=== PATIENT | female | born 1985 | race Caucasian/White ===

== ENCOUNTER 2016-12-01 12:16 | Emergency (ER) | payer OTHER ==
[2016-12-01 13:17] VITALS: BP 108/70
--- NOTE | 2016-12-01 13:38 | UC ---
Complaint Female HPI - HPI Summary HPI Summary: patient has 1 day of dull back ache and now dysuria. hx of kidney stones - History Of Current Complaint Chief Complaint: UCGU Stated Complaint: BACK PAIN Time Seen by Provider: 12/01/16 13:31 Hx Obtained From: Patient Hx Last Menstrual Period: on Depo Provera ?: No Onset/Duration: Sudden Onset, Lasting Hours Timing: Constant Severity Initially: Moderate Severity Currently: Moderate Pain Intensity: 6 Pain Scale Used: 0-10 Numeric Character: Burning Aggravating Factor(s): Urination Associated Signs And Symptoms: Positive: Back Pain - Risk Factors Ovarian Torsion Risk Factor: Negative - Allergies/Home Medications Allergies/Adverse Reactions: Allergies Allergy/AdvReac Type Severity Reaction Status Date / Time Ketorolac Tromethamine Allergy Intermediate overheated Verified 01/13/16 16:46 [From Toradol] Sulfamethoxazole Allergy Intermediate Rash Verified 01/13/16 16:46 w/Trimethoprim [From Bactrim] Clavulanic Acid Allergy Mild Rash Verified 01/13/16 16:46 [From Augmentin] Lacosamide [From Vimpat] AdvReac Hallucinati Verified 07/12/16 13:17 ons PMH/Surg Hx/FS Hx/Imm Hx Previously Healthy: Yes Endocrine History Of: Reports: Thyroid Disease - Hyperparathyroidism Cardiovascular History Of: Denies: Cardiac Disorders Neurological History Of: Reports: Seizures - grand mal, does have occasional seizures - Surgical History Surgical History: Yes Surgery Procedure, Year, and Place: kidney stones. parathyroid/partial. vagus nerve stimulator - Family History Known Family History: Positive: None, Hypertension - Social History Alcohol Use: Rare Substance Use Type: None Smoking Status (MU): Never Smoked Tobacco Review of Systems Constitutional: Negative Skin: Negative Eyes: Negative ENT: Negative Respiratory: Negative Cardiovascular: Negative Gastrointestinal: Negative Genitourinary: Dysuria, Hematuria, Frequency, Urgency Motor: Negative Neurovascular: Negative Musculoskeletal: Myalgia - back pain Neurological: Negative Psychological: Negative All Other Systems Reviewed And Are Negative: Yes Physical Exam Triage Information Reviewed: Yes Appearance: Well-Nourished, Ill-Appearing, Pain Distress Vital Signs: Initial Vital Signs Temp 98.1 F 12/01/16 13:09 Pulse 75 12/01/16 13:09 Resp 14 12/01/16 13:09 BP 108/70 12/01/16 13:09 Pulse Ox 100 12/01/16 13:09 Vital Signs Reviewed: Yes Eye Exam: Normal Eyes: Positive: Conjunctiva Clear ENT Exam: Normal ENT: Positive: Hearing grossly normal, Pharynx normal, TMs normal Dental Exam: Normal Neck exam: Normal Neck: Positive: Supple, Nontender, No Lymphadenopathy Respiratory Exam: Normal Respiratory: Positive: Chest non-tender, Lungs clear, Normal breath sounds Cardiovascular Exam: Normal Cardiovascular: Positive: RRR, No Murmur, Pulses Normal Abdominal Exam: Other - no CVA tenderness, lower abdominal tenderness, Abdomen Description: Positive: No Organomegaly, Soft Bowel Sounds: Positive: Present Musculoskeletal Exam: Normal Musculoskeletal: Positive: Strength Intact, ROM Intact, No Edema Neurological Exam: Normal Neurological: Positive: Alert, Muscle Tone Normal Psychological Exam: Normal Skin Exam: Normal Complaint Female Dx - Course Course Of Treatment: hx obtained, exam performed, medications reviewed, UA positive, culture sent. meds prescribed. - Differential Dx/Diagnosis Differential Diagnosis/HQI/PQRI: Pelvic Inflammatory Disease, Sexually Transmitted Disease, Ureteral Stone, Urinary Tract Infection Provider Diagnoses: UTI. Hematuria Discharge - Discharge Plan Condition: Stable Disposition: HOME Patient Education Materials: Urinary Tract Infection in Women (ED) Additional Instructions: Increase your fluid intake and take the medication as prescribed. follow up with any worsening symptoms.
== END 2016-12-01 13:42 | disposition home or self-care (01) ==
LOC: UCCORT 12:16
DX: N39.0 Urinary tract infection, site not specified (principal); R31.9 Hematuria, unspecified; E21.3 Hyperparathyroidism, unspecified; G40.409 Other generalized epilepsy and epileptic syndromes, not intractable, without status epilepticus; Z88.2 Allergy status to sulfonamides; Z88.1 Allergy status to other antibiotic agents; Z88.5 Allergy status to narcotic agent
CPT/HCPCS: 87086; 99212; G0463

== ENCOUNTER 2016-12-18 13:36 | Emergency (ER) | payer OTHER ==
[2016-12-18 13:51] VITALS: BP 92/69
--- NOTE | 2016-12-18 17:09 | RAD ---
HISTORY: Injury to right ankle, unable to bear weight COMPARISONS: None VIEWS: 3, Frontal, lateral, and oblique views of the right ankle FINDINGS: BONE DENSITY: Normal. BONES: There is a small bone fragment off the distal fibula consistent with an avulsion injury. There is a questionable small bone fragment off the medial malleolus also suggestive of avulsion injury. JOINTS: There is no arthropathy. ALIGNMENT: There is no dislocation. SOFT TISSUES: There is a ventral soft tissue swelling OTHER FINDINGS: None. IMPRESSION: SOFT TISSUE SWELLING WITH SMALL BONE FRAGMENTS OF THE LATERAL AND MEDIAL MALLEOLI SUGGESTIVE OF AVULSION INJURIES
--- NOTE | 2016-12-18 18:19 | UC ---
Lower Extremity/Ankle HPI - HPI Summary HPI Summary: Patient with a history of seizures arrives to with a CC of right ankle pain after experiencing a seizure last evening and injuring the ankle. It is unknown how she injured it. She notes pain over medial and lateral sides of ankle. Denies knee pain or lower extremity pain. She has a history of injuring herself with seizures and is followed carefully by her PCP and neurologist. Denies other injuries. Denies known head injury. - History of Current Complaint Chief Complaint: UCLowerExtremity Stated Complaint: RIGHT ANKLE PAIN Time Seen by Provider: 12/18/16 14:35 Hx Obtained From: Patient Hx Last Menstrual Period: on Depo Provera ?: No Onset/Duration: Sudden Onset Severity Initially: Mild Severity Currently: Mild Pain Intensity: 2 Pain Scale Used: 0-10 Numeric Aggravating Factor(s): Standing, Ambulation Alleviating Factor(s): Rest Able to Bear Weight: Yes - Risk Factors Gout Risk Factors: Negative DVT Risk Factors: Negative Septic Arthritis Risk Factor: Negative - Allergies/Home Medications Allergies/Adverse Reactions: Allergies Allergy/AdvReac Type Severity Reaction Status Date / Time Ketorolac Tromethamine Allergy Intermediate overheated Verified 12/18/16 13:51 [From Toradol] Sulfamethoxazole Allergy Intermediate Rash Verified 12/18/16 13:51 w/Trimethoprim [From Bactrim] Clavulanic Acid Allergy Mild Rash Verified 12/18/16 13:51 [From Augmentin] Lacosamide [From Vimpat] AdvReac Hallucinati Verified 12/18/16 13:51 ons Home Medications: Home Medications Perampanel [Fycompa] 2 mg PO DAILY 12/18/16 [History Confirmed 12/18/16] PMH/Surg Hx/FS Hx/Imm Hx Previously Healthy: Yes Endocrine History Of: Reports: Thyroid Disease - Hyperparathyroidism Cardiovascular History Of: Denies: Cardiac Disorders Neurological History Of: Reports: Seizures - grand mal, does have occasional seizures - Surgical History Surgical History: Yes Surgery Procedure, Year, and Place: kidney stones. parathyroid/partial. vagus nerve stimulator - Family History Known Family History: Positive: None, Hypertension - Social History Occupation: Unemployed Lives: With Family Alcohol Use: Rare Substance Use Type: None Smoking Status (MU): Never Smoked Tobacco Have You Smoked in the Last Year: No Review of Systems Constitutional: Negative Skin: Negative Respiratory: Negative Cardiovascular: Negative Motor: Decreased ROM, Weakness Neurovascular: Negative Musculoskeletal: Decreased ROM, Myalgia Neurological: Negative Psychological: Negative All Other Systems Reviewed And Are Negative: Yes Physical Exam Triage Information Reviewed: Yes Appearance: Well-Appearing, No Pain Distress, Well-Nourished Vital Signs: Initial Vital Signs Temp 98.0 F 12/18/16 13:47 Pulse 99 12/18/16 13:47 Resp 14 12/18/16 13:47 BP 92/69 12/18/16 13:47 Pulse Ox 99 12/18/16 13:47 Eye Exam: Normal Neck exam: Normal Neck: Positive: Supple Respiratory: Positive: Lungs clear, Normal breath sounds Cardiovascular Exam: Normal Bowel Sounds: Positive: Present Musculoskeletal: Positive: Strength Limited @ - plantarflexion and dorsiflexion , ROM Limited @ Neurological Exam: Normal Psychological Exam: Normal Psychological: Positive: Normal Response To Family, Age Appropriate Behavior Skin Exam: Normal Procedures - Splinting Location: right ankle Hand-Made Type: fiberglass Splint: sugar-tong - with a posterior Pre-Proc Neuro Vasc Exam: normal Post-Proc Neuro Vasc Exam: normal Lower Extremity Course/Dx - Course Course Of Treatment: Physical exam performed. No lacerations or head injuries noted. Patient with history of seizures. On medications and followed carefully by neurologist and PCP. Imaging shows lateral and medial malleolar avulsion fracture. D/t patients history of seizures, will place in posterior walking splint to prevent re-injury until follow up with orthopedist. - Differential Dx/Diagnosis Differential Diagnosis/HQI/PQRI: Fracture (Closed), Sprain, Strain Provider Diagnoses: bimalleolar avulsion fracture of right ankle Discharge - Discharge Plan Condition: Stable Disposition: HOME Patient Education Materials: Ankle Fracture (ED) Referrals: Jany Kaba MD [Primary Care Provider] - Yessi Montalvo MD [Medical Doctor] - Additional Instructions: Follow up with orthopedist. Ibuprofen 600mg three times daily with meals as needed for discomfort.
== END 2016-12-18 18:15 | disposition home or self-care (01) ==
LOC: UCCORT 13:36
DX: S82.841A Displaced bimalleolar fracture of right lower leg, initial encounter for closed fracture (principal); X58.XXXA Exposure to other specified factors, initial encounter; Y93.9 Activity, unspecified; Y92.9 Unspecified place or not applicable; G40.909 Epilepsy, unspecified, not intractable, without status epilepticus; Z88.6 Allergy status to analgesic agent; Z88.1 Allergy status to other antibiotic agents; Z88.2 Allergy status to sulfonamides
CPT/HCPCS: 99212; G0463

== ENCOUNTER 2017-01-31 22:59 | Emergency (ER) | payer OTHER ==
[2017-02-01 00:25] LABS: Hematocrit 33 % (35-47); Mean Corpuscular HGB Conc 34 g/dl (31-36); Mean Corpuscular Hemoglobin 30 pg (27-31); Mean Corpuscular Volume 90 fL (80-97); Mean Platelet Volume 8 um3 (7.4-10.4); Red Blood Count 3.64 10^6/ul (4.0-5.4); Red Cell Distribution Width 13 % (10.5-15); White Blood Count 10.1 10^3/ul (3.5-10.8)
[2017-02-01 00:36] LABS: Albumin 3.9 g/dL (3.2-5.2); BUN/Creatinine Ratio 22.9 (8-20); Calcium 10.3 mg/dL (8.6-10.3); EGFR African American 87.8 (>60); EGFR Non-African American 68.2 (>60); Globulin 2.9 g/dL (2-4); Magnesium 2.1 mg/dL (1.9-2.7); Total Bilirubin 0.2 mg/dL (0.2-1.0); Total Protein 6.8 g/dL (6.4-8.9)
--- NOTE | 2017-02-01 01:01 | ED ---
Jaymie Alfonso Salem, scribed for Jonas Yo MD on 01/31/17 at 2358 . Neurological HPI - HPI Summary HPI Summary: Patient is a 32 y/o female who presents to the ED per EMS s/p seizure earlier today. Pt reports she has epilepsy and has been having seizures daily for some time (her last sz before this one was yesterday). Pt reports she was in the hospital yesterday as she twisted her ankle after a sz. She presents today with ecchymosis of the left face after falling during her sz. Pts mother states that pts epilepsy has not been managed well for the last 5-6 years. They report they spoke to Dr. Cartagena (neurologist) today and she changed her medications. - History of Current Complaint Chief Complaint: EDSeizure Stated Complaint: SEIZURE Time Seen by Provider: 01/31/17 23:13 Hx Obtained From: Patient, Family/Brancher - Parents. Hx Last Menstrual Period: on Depo Provera Onset/Duration: Gradual Onset, Started hours ago Onset Severity: Moderate Current Severity: Moderate Seizure Severity: Moderate Pain Intensity: 0 Pain Scale Used: 0-10 Numeric Aggravating: Nothing Alleviating: Nothing Associated Signs and Symptoms: Positive: Negative - Allergy/Home Medications Allergies/Adverse Reactions: Allergies Allergy/AdvReac Type Severity Reaction Status Date / Time Ketorolac Tromethamine Allergy Intermediate overheated Verified 12/18/16 13:51 [From Toradol] Sulfamethoxazole Allergy Intermediate Rash Verified 12/18/16 13:51 w/Trimethoprim [From Bactrim] Clavulanic Acid Allergy Mild Rash Verified 12/18/16 13:51 [From Augmentin] Lacosamide [From Vimpat] AdvReac Hallucinati Verified 12/18/16 13:51 ons PMH/Surg Hx/FS Hx/Imm Hx Endocrine/Hematology History: Reports: Hx Thyroid Disease - Hyperparathyroidism Neurological History: Reports: Hx Seizures - grand mal, does have occasional seizures - Surgical History Surgery Procedure, Year, and Place: kidney stones. parathyroid/partial. vagus nerve stimulator Infectious Disease History: No Infectious Disease History: Denies: Traveled Outside the [place] in Last 30 Days - Family History Known Family History: Positive: Hypertension Negative: Cardiac Disease, Diabetes - Social History Alcohol Use: Rare Hx Substance Use: No Substance Use Type: Reports: None Hx Tobacco Use: No Smoking Status (MU): Never Smoked Tobacco Have You Smoked in the Last Year: No Review of Systems Positive: Other - Ecchymosis of the left face.. Negative: Fever Positive: Other - Twisted ankle. Neurological: Other - Seizure. All Other Systems Reviewed And Are Negative: Yes Physical Exam Triage Information Reviewed: Yes Vital Signs On Initial Exam: Initial Vitals Temp Pulse Resp BP Pulse Ox 98.3 F 87 18 113/71 98 01/31/17 23:08 01/31/17 23:08 01/31/17 23:08 01/31/17 23:08 01/31/17 23:08 Vital Signs Reviewed: Yes Appearance: Positive: Well-Appearing, No Pain Distress Skin: Positive: Warm Eyes: Positive: PINKY ENT: Positive: Hearing grossly normal Neck: Positive: Supple Respiratory/Lung Sounds: Positive: Clear to Auscultation, Breath Sounds Present Cardiovascular: Positive: RRR Abdomen Description: Positive: Nontender, Soft Bowel Sounds: Positive: Present Musculoskeletal: Positive: Strength/ROM Intact Neurological: Positive: Sensory/Motor Intact, Alert, Oriented to Person Place, Time Psychiatric: Positive: Affect/Mood Appropriate - Jackson Coma Scale Coma Scale Total: 15 Diagnostics - Vital Signs Vital Signs Temp Pulse Resp BP Pulse Ox 01/31/17 23:08 98.3 F 87 18 113/71 98 - Laboratory Lab Results: Lab Results 02/01/17 02/01/17 02/01/17 Range/Units 00:05 00:05 00:05 WBC 10.1 (3.5-10.8) 10^3/ul RBC 3.64 L (4.0-5.4) 10^6/ul Hgb 11.0 L (12.0-16.0) g/dl Hct 33 L (35-47) % MCV 90 (80-97) fL MCH 30 (27-31) pg MCHC 34 (31-36) g/dl RDW 13 (10.5-15) % Plt Count 203 (150-450) 10^3/ul MPV 8 (7.4-10.4) um3 Neut % (Auto) 77.5 (38-83) % Lymph % (Auto) 14.1 L (25-47) % [place] % (Auto) 6.1 (1-9) % Eos % (Auto) 1.8 (0-6) % Baso % (Auto) 0.5 (0-2) % Absolute Neuts (auto) 7.9 H (1.5-7.7) 10^3/ul Absolute Lymphs (auto) 1.4 (1.0-4.8) 10^3/ul Absolute Monos (auto) 0.6 (0-0.8) 10^3/ul Absolute Eos (auto) 0.2 (0-0.6) 10^3/ul Absolute Basos (auto) 0 (0-0.2) 10^3/ul Absolute Nucleated RBC 0 10^3/ul Nucleated RBC % 0 INR (Anticoag Therapy) 0.91 (0.89-1.11) Sodium 138 (133-145) mmol/L Potassium Pending Chloride 111 (101-111) mmol/L Carbon Dioxide 20 L (22-32) mmol/L Anion Gap Pending BUN 22 (6-24) mg/dL Creatinine 0.96 H (0.51-0.95) mg/dL Est GFR ( Amer) 87.8 (>60) Est GFR (Non-Af Amer) 68.2 (>60) BUN/Creatinine Ratio 22.9 H (8-20) Glucose 120 H (70-100) mg/dL Lactic Acid (0.5-2.0) mmol/L Calcium 10.3 (8.6-10.3) mg/dL Magnesium 2.1 (1.9-2.7) mg/dL Total Bilirubin 0.20 (0.2-1.0) mg/dL AST Pending ALT 8 (7-52) U/L Alkaline Phosphatase 81 (34-104) U/L Total Protein 6.8 (6.4-8.9) g/dL Albumin 3.9 (3.2-5.2) g/dL Globulin 2.9 (2-4) g/dL Albumin/Globulin Ratio 1.3 (1-3) 02/01/17 Range/Units 00:05 WBC (3.5-10.8) 10^3/ul RBC (4.0-5.4) 10^6/ul Hgb (12.0-16.0) g/dl Hct (35-47) % MCV (80-97) fL MCH (27-31) pg MCHC (31-36) g/dl RDW (10.5-15) % Plt Count (150-450) 10^3/ul MPV (7.4-10.4) um3 Neut % (Auto) (38-83) % Lymph % (Auto) (25-47) % [place] % (Auto) (1-9) % Eos % (Auto) (0-6) % Baso % (Auto) (0-2) % Absolute Neuts (auto) (1.5-7.7) 10^3/ul Absolute Lymphs (auto) (1.0-4.8) 10^3/ul Absolute Monos (auto) (0-0.8) 10^3/ul Absolute Eos (auto) (0-0.6) 10^3/ul Absolute Basos (auto) (0-0.2) 10^3/ul Absolute Nucleated RBC 10^3/ul Nucleated RBC % INR (Anticoag Therapy) (0.89-1.11) Sodium (133-145) mmol/L Potassium Chloride (101-111) mmol/L Carbon Dioxide (22-32) mmol/L Anion Gap BUN (6-24) mg/dL Creatinine (0.51-0.95) mg/dL Est GFR ( Amer) (>60) Est GFR (Non-Af Amer) (>60) BUN/Creatinine Ratio (8-20) Glucose (70-100) mg/dL Lactic Acid 0.9 (0.5-2.0) mmol/L Calcium (8.6-10.3) mg/dL Magnesium (1.9-2.7) mg/dL Total Bilirubin (0.2-1.0) mg/dL AST ALT (7-52) U/L Alkaline Phosphatase (34-104) U/L Total Protein (6.4-8.9) g/dL Albumin (3.2-5.2) g/dL Globulin (2-4) g/dL Albumin/Globulin Ratio (1-3) Result Diagrams: 02/01/17 00:05 02/01/17 00:05 Lab Statement: Any lab studies that have been ordered have been reviewed, and results considered in the medical decision making process. - CT Maxillofacial CT Interpretation Completed By: Radiologist - IMPRESSION: No acute fracture. Minimal swelling left supraorbital frontal scalp. Opacification one left ethmoid air cell. Surgical changes and partly seen wire-containing device left neck soft tissues. Re-Evaluation - Re-Evaluation First Eval Change: Improved - no further seizures Course/Dx - Course Course Of Treatment: 32 y/o female who presents after a sz with ecchymosis of the left face. Maxillofacial CT reveals no acute fracture. Minimal swelling left supraorbital frontal scalp. Opacification one left ethmoid air cell. Surgical changes and partly seen wire-containing device left neck soft tissues. Pt is stable and will be DC'd. - Diagnoses Provider Diagnoses: Facial contusion, Seizure Discharge - Discharge Plan Condition: Stable Disposition: HOME Patient Education Materials: Epilepsy (ED), Facial Contusion (ED) Referrals: Jany Kaba MD [Primary Care Provider] - Additional Instructions: Follow up with PCP. The documentation as recorded by the Jaymie santo Salem accurately reflects the service I personally performed and the decisions made by , Jonas Yo MD.
[2017-02-01 01:19] LABS: Potassium 4.2 mmol/L (3.5-5.0)
[2017-02-01] MEDS ORDERED: Diazepam (ANTICONVULSANT)(*) 10 MG RECTAL.GEL PR ONE (03:27)
[2017-02-01 03:53] VITALS: BP 104/66
--- NOTE | 2017-02-01 07:49 | RAD ---
INDICATION: Facial trauma, seizure. COMPARISON: There are no prior studies available for comparison. TECHNIQUE: Contiguous axial sections of the axial images of the facial bones were obtained and reconstructed in the coronal and sagittal planes. FINDINGS: Soft tissue swelling is noted anterior to the left frontal bone and sinus. The olyd of the orbits and maxillary sinuses appear intact. The zygomatic arches appear intact. There is no evidence for a fracture of the mandible. The nasal bones appear intact. There is moderate deviation of the nasal septum toward the left side. The pterygoid plates appear intact. There is opacification of a single left ethmoid air cell and a small nodule measuring 6 x 5 mm in the right maxillary sinus most consistent with a mucous retention cyst or polyp. The paranasal sinuses otherwise appear clear. There is a wire device present in the inferior portion of the neck on the left side which is partially visualized on this study. IMPRESSION: NO EVIDENCE OF FRACTURE.
== END 2017-02-01 03:50 | disposition home or self-care (01) ==
LOC: ED 22:59
DX: S00.83XA Contusion of other part of head, initial encounter (principal); R56.9 Unspecified convulsions; M25.579 Pain in unspecified ankle and joints of unspecified foot; W19.XXXA Unspecified fall, initial encounter; Y93.9 Activity, unspecified; Y92.9 Unspecified place or not applicable
CPT/HCPCS: 36415; 70486; 80053; 83605; 83735; 85025; 85610; 99283; A9270-GY

== ENCOUNTER 2017-02-19 09:26 | Emergency (ER) | payer OTHER ==
[2017-02-19] MEDS ORDERED: NS 0.9% 1000 ML* 1,000 ML IV ONE (10:48)
--- NOTE | 2017-02-19 10:58 | UC ---
General HPI - HPI Summary HPI Summary: 32 yr ole female with h/o epilepsy here with her mom for fever and extreme lethargy. Staretd with tactile temp and body aches on 02/14. sx have not improved throughout the week but only worsened. Mom here with her and has been keeping an eye on her. She does live alone in an appt. lethargy worsened a few days ago. was seen at [facility] 3 days ago with low BP in 60s per mom. Lethargy seemed worsened yesterday and today. She also started having a slight rask on wrists and ankles on 02/14. looks like hives. itchy. no new meds. she is compliant with seizure meds and has not had seizure. sealexus is on depo, last shot 2 wks ago, but strangely got her period recently, which is unusual with the depo. Denies dysuria. See's urologist for kidney stones. See's endocrine for hypercalcemia. Uncertain of cause - possible medication induced. Decreased appetite. States that she has been drinking fluids with little/infreq dark UOP. Has had increased BMs recently though. Here with Mom who provides most of hx as pt is very lethargic. Mom states that she is usually much more alert than this despite the seizure medications. - History of Current Complaint Chief Complaint: UCGeneralIllness Stated Complaint: FLU SXS - Allergy/Home Medications Allergies/Adverse Reactions: Allergies Allergy/AdvReac Type Severity Reaction Status Date / Time Ketorolac Tromethamine Allergy Intermediate overheated Verified 02/19/17 10:26 [From Toradol] Sulfamethoxazole Allergy Intermediate Rash Verified 02/19/17 10:26 w/Trimethoprim [From Bactrim] Clavulanic Acid Allergy Mild Rash Verified 02/19/17 10:26 [From Augmentin] Lacosamide [From Vimpat] AdvReac Hallucinati Verified 02/19/17 10:26 ons PMH/Surg Hx/FS Hx/Imm Hx Previously Healthy: Yes Endocrine History Of: Reports: Thyroid Disease - Hyperparathyroidism, hypercalcemia Cardiovascular History Of: Denies: Cardiac Disorders GI/ History Of: Reports: Kidney Stones Neurological History Of: Reports: Seizures - grand mal, does have occasional seizures - Surgical History Surgical History: Yes Surgery Procedure, Year, and Place: kidney stones. parathyroid/partial. vagus nerve stimulator - Family History Known Family History: Positive: None, Hypertension Negative: Cardiac Disease, Diabetes - Social History Alcohol Use: Rare Substance Use Type: None Smoking Status (MU): Never Smoked Tobacco Have You Smoked in the Last Year: No Review of Systems Constitutional: Fever, Fatigue Skin: Rash Eyes: Negative ENT: Negative Respiratory: Negative Cardiovascular: Negative Gastrointestinal: Negative Genitourinary: Negative Motor: Negative Neurovascular: Negative Musculoskeletal: Negative Neurological: Negative Psychological: Negative All Other Systems Reviewed And Are Negative: Yes Physical Exam Triage Information Reviewed: Yes Appearance: Ill-Appearing, Other: - ambulates in with support, very lethargic appearing. speech is slow but coherent. Vital Signs: Initial Vital Signs Temp 98.7 F 02/19/17 10:30 Pulse 124 02/19/17 10:30 Resp 14 02/19/17 10:30 BP 65/36 02/19/17 10:30 Pulse Ox 100 02/19/17 10:30 Vital Signs Reviewed: Yes Eye Exam: Normal ENT: Positive: Other: - tongue is very dry Dental Exam: Normal Neck exam: Normal Neck: Positive: Supple, Nontender, No Lymphadenopathy Respiratory Exam: Normal Respiratory: Positive: Lungs clear, Normal breath sounds, No respiratory distress, No accessory muscle use Cardiovascular Exam: Normal Cardiovascular: Positive: No Murmur, Brisk Capillary Refill, Tachycardia, Other : - radial pulse + 1 b/l Abdomen Description: Positive: Nontender, Soft. Negative: Distended, Guarding Bowel Sounds: Positive: Present Neurological: Positive: Muscle Tone Normal, Fatigued, Lethargic Psychological Exam: Normal Skin: Positive: Other - mild urticarial rash b/l ankles and wrists. blanching. Re-Evaluation - Re-Evaluation First Eval Re-Evaluation Time: 11:10 Change: Unchanged - BP Systolic 59 with HR improved to 108 after starting NS at 1L/hr. Course/Dx - Course Course Of Treatment: NS IV started here 1 L/hr. - Differential Dx - Multi-Symptom Differential Diagnoses: Sepsis, Other - Influenza Provider Diagnoses: hypotension, lethargy, seizure d/o. - Physician Notifications Discussed Patient Care With: Dr Alfaro at [facility]. history and plan reviewed with her. Flu swab is pending at time of call. She accepts pt. Time Discussed With Above Provider: 11:00 Discharge - Discharge Plan Condition: Guarded Disposition: TRANS HIGHER LVL OF CARE FAC
[2017-02-19 11:17] VITALS: BP 59/29
== END 2017-02-19 11:04 | disposition short-term general hospital (02) ==
LOC: UCCORT 09:26
DX: I95.9 Hypotension, unspecified (principal); R53.83 Other fatigue; G40.909 Epilepsy, unspecified, not intractable, without status epilepticus; R21 Rash and other nonspecific skin eruption; E21.3 Hyperparathyroidism, unspecified; Z87.442 Personal history of urinary calculi; Z88.1 Allergy status to other antibiotic agents; Z88.5 Allergy status to narcotic agent; Z88.2 Allergy status to sulfonamides
CPT/HCPCS: 87502; 96360; 99213; G0463